=== PATIENT | male | born 1945 | race Caucasian/White ===

== ENCOUNTER 2017-01-30 09:13 | Emergency (ER) | payer MEDICARE, BC ==
[2017-01-30 09:52] VITALS: BP 117/61
[2017-01-30] MEDS ORDERED: Albuterol/Ipratropium NEB.SOL* Albuterol 2.5 MG/Ipratropium 0.5 MG 3 ML INH ONE (10:02)
--- NOTE | 2017-01-30 10:14 | UC ---
Respiratory Complaint HPI - HPI Summary HPI Summary: ST, nasal bandar, cough, wheezing, chest tightness starting 5 days ago. it is much worse at night and when he lies down. Denies fever or vomiting. No hx of COPD or asthma. - History of Current Complaint Chief Complaint: UCRespiratory Stated Complaint: CONGESTION Time Seen by Provider: 01/30/17 09:55 Hx Obtained From: Patient Onset/Duration: Gradual Onset, Lasting Days Timing: Constant Severity Initially: Mild Severity Currently: Moderate Character: Cough: Nonproductive Aggravating Factors: Deep Breaths, Recumbent Position Alleviating Factors: Upright Position - Allergies/Home Medications Allergies/Adverse Reactions: Allergies Allergy/AdvReac Type Severity Reaction Status Date / Time No Known Allergies Allergy Verified 01/30/17 09:42 Home Medications: Home Medications Atorvastatin* [Lipitor 20 MG*] 1 tab PO SEE INSTRUCTIONS 01/30/17 [History Confirmed 01/30/17] PMH/Surg Hx/FS Hx/Imm Hx Previously Healthy: Yes - Surgical History Surgical History: Yes Surgery Procedure, Year, and Place: BILATERAL KNEE REPLACEMENTS 10 YEARS AGO - Family History Known Family History: Positive: Hypertension - Social History Alcohol Use: Daily Substance Use Type: None Smoking Status (MU): Never Smoked Tobacco Review of Systems Constitutional: Negative Skin: Negative Eyes: Negative ENT: Sore Throat, Nasal Discharge Respiratory: Shortness Of Breath, Cough Cardiovascular: Negative Gastrointestinal: Negative Genitourinary: Negative Motor: Negative Neurovascular: Negative Musculoskeletal: Negative Neurological: Negative Psychological: Negative All Other Systems Reviewed And Are Negative: Yes Physical Exam Triage Information Reviewed: Yes Appearance: Well-Appearing, No Pain Distress, Well-Nourished Vital Signs: Initial Vital Signs Temp 99.5 F 01/30/17 09:46 Pulse 82 01/30/17 09:46 Resp 16 01/30/17 09:46 BP 117/61 01/30/17 09:46 Pulse Ox 95 01/30/17 09:46 Vital Signs Reviewed: Yes Eye Exam: Normal Eyes: Positive: Conjunctiva Clear ENT: Positive: Hearing grossly normal, Pharynx normal, Nasal congestion, TMs normal. Negative: Tonsillar swelling, Tonsillar exudate Dental Exam: Normal Neck exam: Normal Neck: Positive: Supple, Nontender, No Lymphadenopathy Respiratory: Positive: Respiratory distress - mild, unable to get through entire sentences without taking another breath., Accessory muscle use, Rhonchi, Wheezing Cardiovascular: Positive: RRR, Murmur:Sys:Grade _?_/ - III, sees Dr. Hendrickson for this Musculoskeletal Exam: Normal Neurological Exam: Normal Neurological: Positive: Alert Psychological Exam: Normal Skin Exam: Normal UC Diagnostic Evaluation - Laboratory O2 Sat by Pulse Oximetry: 95 Re-Evaluation - Re-Evaluation First Eval Re-Evaluation Time: 10:40 Change: Improved - slightly increased air movement, still has very wet, ronchorous noises with insp and exp. Pt does not feel marked improvement and not having productive cough. Respiratory Course/Dx - Differential Dx/Diagnosis Provider Diagnoses: RLL pneumonia. bronchospasm Discharge - Discharge Plan Condition: Stable Disposition: HOME Prescriptions: Albuterol HFA INHALER* [Ventolin HFA Inhaler*] 1 - 2 puff INH Q4H PRN #1 mdi PRN Reason: wheeze, cough Amoxicillin/Clavulanate TAB* [Augmentin TAB 875*] 875 mg PO BID #14 tab predniSONE TAB* [Deltasone TAB*] 50 mg PO DAILY #5 tab Patient Education Materials: Pneumonia (ED), Bronchospasm (ED) Referrals: Sebastian Dai MD [Primary Care Provider] - 3 Days Additional Instructions: Please follow up closely with your primary care provider to make sure you are improving and to arrange for longer-term follow up care. If you have severe trouble breathing or sudden worsening, please go to the emergency department.
--- NOTE | 2017-01-30 11:12 | RAD ---
INDICATION: Cough and shortness of breath. Wheezing. Chest pain. COMPARISON: April 26, [address] TECHNIQUE: Dual energy PA and routine lateral views of the chest were obtained. REPORT: Airspace consolidation at the RIGHT lung base involving the RIGHT middle lobe and basilar segments of the RIGHT lower lobe. Small RIGHT pleural effusion. Clear LEFT lung and pleural space. Negative for cardiomegaly. Unremarkable central pulmonary vasculature. IMPRESSION: RIGHT basilar pneumonia. Associated small effusion. Radiographic follow-up after therapy warranted to assess for resolution and exclude an obscured lesion.
== END 2017-01-30 11:32 | disposition home or self-care (01) ==
LOC: UCEAST 09:13
DX: J18.9 Pneumonia, unspecified organism (principal); J98.01 Acute bronchospasm; Z96.653 Presence of artificial knee joint, bilateral
CPT/HCPCS: 71020; 90471; 99212; A9270-GY; G0463

== ENCOUNTER 2017-02-12 07:03 | Emergency (ER) | payer MEDICARE, BC ==
[2017-02-12 07:14] VITALS: BP 128/77
--- NOTE | 2017-02-12 07:54 | UC ---
Upper Extremity HPI - HPI Summary HPI Summary: Pt presents to ED through amb triage. Pt with h/o aortic stenosis, HTN, hyperlipidemia, and drinks 2 drinks per day. Pt states 5 days developed pain in his left hand, wrist. Pt states progressively has had increased pain, paresthesia to hand and starting yesterday radiation to left elbow. Pt also has noted over the last 2 days increased swelling in hand and forearm. Pt states feels fatigue and hot but no documented fever. No cp, sob, abd pain. No TAI, vision changes. Pt states last night developed difficulty moving arm second to swelling and pain. No analgesia taken. Pt is not immunocompromised. No h/o DVT. No anticoagulation. Pt h/o arthritis or gout. No trauma. RHD. Pt states had a remote h/o of "fluid build up from my liver." Pt was on diuretics, not currently Pt states was recently treated for PNA 2 weeks ago - pt given MDI, Abx, and Prednisone x 5 days. States feeling better. Pt's medications reviewed at this visit. - History of Current Complaint Chief Complaint: UCUpperExtremity Stated Complaint: ARM PAIN Time Seen by Provider: 02/12/17 07:22 Hx Obtained From: Patient, Family/Engineering Operations Leader Onset/Duration: Gradual Onset Severity Initially: Mild Severity Currently: Moderate Location Of Pain: Is Discrete @ - LUE Aggravating Factor(s): Movement, Lifting Alleviating Factor(s): Nothing, Other: - applied heat, Motrin without relief Associated Signs And Symptoms: Positive: Swelling, Redness, Numbness/Tingling - Allergies/Home Medications Allergies/Adverse Reactions: Allergies Allergy/AdvReac Type Severity Reaction Status Date / Time No Known Allergies Allergy Verified 02/12/17 07:07 Home Medications: Home Medications Aspirin 81 mg PO DAILY 02/12/17 [History Confirmed 02/12/17] Cyanocobalamin TAB* [Vitamin B12 TAB*] 500 mcg PO DAILY 02/12/17 [History Confirmed 02/12/17] Diphenhydramine-Acetaminophen [Acetaminophen/Diphenhydra 25-500 mg] 1 tab PO DAILY 02/12/17 [History Confirmed 02/12/17] PMH/Surg Hx/FS Hx/Imm Hx Previously Healthy: No Endocrine History: Dyslipidemia Cardiovascular History: Hypertension - Surgical History Surgical History: Yes Surgery Procedure, Year, and Place: BILATERAL KNEE REPLACEMENTS 10 YEARS AGO - Family History Known Family History: Positive: Hypertension - Social History Occupation: Retired Lives: With Family Alcohol Use: Daily Alcohol Amount: 2 glasses wine daily Substance Use Type: None Smoking Status (MU): Never Smoked Tobacco Review of Systems Constitutional: Fatigue, Other - warmth Skin: Other - left upper ext pain Eyes: Negative ENT: Negative Respiratory: Negative Cardiovascular: Negative Gastrointestinal: Negative Genitourinary: Negative Motor: Decreased ROM Neurovascular: Decreased Sensation Musculoskeletal: Decreased ROM Neurological: Negative Psychological: Negative All Other Systems Reviewed And Are Negative: Yes Physical Exam Triage Information Reviewed: Yes Appearance: Well-Appearing, Well-Nourished, Pain Distress - with movement Vital Signs: Initial Vital Signs Temp 99.1 F 02/12/17 07:10 Pulse 71 02/12/17 07:10 Resp 16 02/12/17 07:10 BP 128/77 02/12/17 07:10 Pulse Ox 95 02/12/17 07:10 Vital Signs Reviewed: Yes Eyes: Negative: Discharge ENT: Positive: Hearing grossly normal Neck exam: Normal Neck: Positive: Supple, Nontender, No Lymphadenopathy Respiratory Exam: Normal Respiratory: Positive: Chest non-tender, Lungs clear, Normal breath sounds, No respiratory distress Cardiovascular: Positive: RRR, No Murmur, Pulses Normal, Other: - 2+ radial, ulnar CBT < 2 sec all fingers Abdominal Exam: Normal Abdomen Description: Positive: Nontender, No Organomegaly, Soft Bowel Sounds: Positive: Present Musculoskeletal Exam: Other - + abduction, extension left arm + flex/ext elbow with pain referred to wrist + pronate/supinate with discomfort in left wrist Pt with limited flex/ext wrist second to pain and edema + TTP distal, medial wrist with direct palpation. Pt with difficulty movement of fingers second to profound edema - diffuse palm, fingers Neurological: Positive: Alert Psychological Exam: Normal Skin: Positive: Other - PT with 3x3 cm erythema and warmth dorsum left hand, medial wrist + TTP No crepitus, no open wounds Pt with diffuse edema palm and fingers Pt with slight erythema linear line extending prox to elbow - Additional Comments Pt with wedding band on left ring finger. Band with a pre-existing break. Using forceps opened ring at existing break and placed in specimen cup - given to patient Upper Extremity Course/Dx - Course Course Of Treatment: Pt with diffuse edema of left hand, wrist and forearm with area of erythema, tenderness medial, dorsal, wrist. Differential includes gout , joint infection, cellulitis, and lower suspicion for DVT. Ring removed and given to pt. Recommend pt to ED for further eval and treatment - likely include labs, imaging, possible abx. Pt and spouse comfortable and in agreement with plan. by POV - Differential Dx/Diagnosis Provider Diagnoses: left arm/hand edema, hand erythema Discharge - Discharge Plan Condition: Stable Disposition: [facility] Referrals: Sebastian Dai MD [Primary Care Provider] - Additional Instructions: The doctor that evaluated you today recommends you go to the emergency department for futher evaluation of the swelling in your hand. You need to be further evaluated for a joint infections, gout, or possibly a blood clot. At the emergency department you will likely have blood tests and some imaging. Your ring was removed in the urgent care center and given back to you in a medication cup Go directly to the emergency department.
== END 2017-02-12 07:57 | disposition short-term general hospital (02) ==
LOC: UCEAST 07:03
DX: R60.0 Localized edema (principal); L53.9 Erythematous condition, unspecified; E78.5 Hyperlipidemia, unspecified; I10 Essential (primary) hypertension; Z96.653 Presence of artificial knee joint, bilateral
CPT/HCPCS: 99212; G0463

== ENCOUNTER 2017-02-12 08:13 | Emergency (ER) | payer MEDICARE, BC ==
--- NOTE | 2017-02-12 09:27 | RAD ---
INDICATION: Edema left hand. TECHNIQUE: 4 views of the left hand were obtained. FINDINGS: There is diffuse soft tissue swelling. The bones appear osteopenic. No fracture or significant focal osseous abnormality is seen. There is mild to moderate osteoarthritic change in the metacarpophalangeal proximal and distal interphalangeal joints and moderate to severe osteoarthritic change in the first carpal metacarpal joint. IMPRESSION: DIFFUSE SOFT TISSUE SWELLING.
[2017-02-12 09:45] LABS: Hematocrit 44 % (42-52); Hemoglobin 14.4 g/dl (14.0-18.0); Mean Corpuscular HGB Conc 33 g/dl (31-36); Mean Corpuscular Hemoglobin 30 pg (27-31); Mean Corpuscular Volume 90 fL (80-94); Mean Platelet Volume 10 um3 (7.4-10.4); Red Blood Count 4.84 10^6/ul (4.0-5.4); Red Cell Distribution Width 16 % (10.5-15)
[2017-02-12 10:01] LABS: Albumin 3.6 g/dL (3.2-5.2); BUN/Creatinine Ratio 26.2 (8-20); Calcium 8.8 mg/dL (8.6-10.3); EGFR African American 156.2 (>60); EGFR Non-African American 121.4 (>60); Globulin 2.9 g/dL (2-4); Total Bilirubin 2.3 mg/dL (0.2-1.0); Total Protein 6.5 g/dL (6.4-8.9)
--- NOTE | 2017-02-12 10:01 | RAD ---
INDICATION: Tenderness along the veins of the forearm. COMPARISON: There are no prior studies available for comparison. TECHNIQUE: Multiple real-time, color flow and Doppler tracings of the left upper extremity were obtained. FINDINGS: The axillary, brachial, basilic and cephalic veins all demonstrate normal compressibility, augmentation with compression and phasic response with respiration. There was increased pulsatile flow. The radial and ulnar arteries demonstrate normal compressibility. The subclavian and internal jugular veins also demonstrate normal color flow imaging and phasic response with respiration. IMPRESSION: NO EVIDENCE FOR DEEP VENOUS THROMBOSIS.
--- NOTE | 2017-02-12 10:14 | ED ---
Upper Extremity Pain - HPI Summary HPI Summary: 71M presents with left wrist swelling and redness for 5 days. The redness was just noticed a today at urgent care. He denies any injury to the area. He denies any scratches to area. He is DM2 controlled by diet. He has ecchmoysis to the area which is a recurrent issue. He states the pain increased last night and he is extremely tender to ROM the joint. He denies any fever. He denies any spreading redness to the joint previously. He denies any history of gout. He denies any smoking history. He is right handed. He did complete a course of antibiotic two weeks ago for pneumonia. - History of Current Complaint Chief Complaint: EDExtremityUpper Stated Complaint: HAND AND ARM SWELLING COMMING FROM [facility] Time Seen by Provider: 02/12/17 08:48 - Allergies/Home Medications Allergies/Adverse Reactions: Allergies Allergy/AdvReac Type Severity Reaction Status Date / Time No Known Allergies Allergy Verified 02/12/17 07:07 PMH/Surg Hx/FS Hx/Imm Hx Endocrine/Hematology History: Reports: Hx Diabetes - NO MEDS Denies: Hx Thyroid Disease Cardiovascular History: Reports: Hx Hypertension Respiratory History: Denies: Hx Asthma, Hx Chronic Obstructive Pulmonary Disease (COPD) GI History: Denies: Hx Ulcer - Surgical History Surgery Procedure, Year, and Place: BILATERAL KNEE REPLACEMENTS 10 YEARS AGO Infectious Disease History: No Infectious Disease History: Denies: Hx Hepatitis, Hx Human Immunodeficiency Virus (HIV), History Other Infectious Disease, Traveled Outside the [place] in Last 30 Days - Family History Known Family History: Positive: Hypertension - Social History Alcohol Use: Daily Alcohol Amount: 2 glasses wine daily Substance Use Type: Reports: None Smoking Status (MU): Never Smoked Tobacco Review of Systems Negative: Fever Negative: Chest Pain Negative: Shortness Of Breath Positive: Edema - left wrist Positive: Other - redeness of left wrist All Other Systems Reviewed And Are Negative: Yes Physical Exam Triage Information Reviewed: Yes Vital Signs On Initial Exam: Initial Vitals Temp Pulse Resp BP Pulse Ox 97.8 F 74 18 132/65 98 02/12/17 08:17 02/12/17 08:17 02/12/17 08:17 02/12/17 08:17 02/12/17 08:17 Vital Signs Reviewed: Yes Appearance: Positive: Well-Appearing Skin: Positive: Other - 4cm by 4cm with area of erythema that streaks up arm on ulnar ascept of arm Head/Face: Positive: Normal Head/Face Inspection Eyes: Positive: Normal, Conjunctiva Clear Respiratory/Lung Sounds: Positive: Clear to Auscultation, Breath Sounds Present Cardiovascular: Positive: Normal, RRR Musculoskeletal: Positive: Limited @ - left wrist with severe pain with ROM, Other - good pulses, capillary refill<2 secs, able to move fingers - Sofiya Coma Scale Coma Scale Total: 15 Diagnostics - Vital Signs Vital Signs Temp Pulse Resp BP Pulse Ox 02/12/17 09:00 62 120/71 97 02/12/17 08:31 66 97 02/12/17 08:30 120/65 02/12/17 08:17 97.8 F 72 17 132/65 99 - Laboratory Lab Results: Lab Results 02/12/17 02/12/17 02/12/17 Range/Units 09:31 09:31 09:31 WBC 9.0 (3.5-10.8) 10^3/ul RBC 4.84 (4.0-5.4) 10^6/ul Hgb 14.4 (14.0-18.0) g/dl Hct 44 (42-52) % MCV 90 (80-94) fL MCH 30 (27-31) pg MCHC 33 (31-36) g/dl RDW 16 H (10.5-15) % Plt Count 136 L (150-450) 10^3/ul MPV 10 (7.4-10.4) um3 Neut % (Auto) 83.7 H (38-83) % Lymph % (Auto) 5.7 L (25-47) % [place] % (Auto) 9.9 H (1-9) % Eos % (Auto) 0.2 (0-6) % Baso % (Auto) 0.5 (0-2) % Absolute Neuts (auto) 7.6 (1.5-7.7) 10^3/ul Absolute Lymphs (auto) 0.5 L (1.0-4.8) 10^3/ul Absolute Monos (auto) 0.9 H (0-0.8) 10^3/ul Absolute Eos (auto) 0 (0-0.6) 10^3/ul Absolute Basos (auto) 0 (0-0.2) 10^3/ul Absolute Nucleated RBC 0 10^3/ul Nucleated RBC % 0 ESR Pending Sodium 135 (133-145) mmol/L Potassium 4.0 (3.5-5.0) mmol/L Chloride 103 (101-111) mmol/L Carbon Dioxide 27 (22-32) mmol/L Anion Gap 5 (2-11) mmol/L BUN 17 (6-24) mg/dL Creatinine 0.65 L (0.67-1.17) mg/dL Est GFR ( Amer) 156.2 (>60) Est GFR (Non-Af Amer) 121.4 (>60) BUN/Creatinine Ratio 26.2 H (8-20) Glucose 120 H (70-100) mg/dL Lactic Acid 0.9 (0.5-2.0) mmol/L Calcium 8.8 (8.6-10.3) mg/dL Total Bilirubin 2.30 H (0.2-1.0) mg/dL AST 15 (13-39) U/L ALT 19 (7-52) U/L Alkaline Phosphatase 105 H (34-104) U/L C-React Prot High Sens 31.18 mg/L Total Protein 6.5 (6.4-8.9) g/dL Albumin 3.6 (3.2-5.2) g/dL Globulin 2.9 (2-4) g/dL Albumin/Globulin Ratio 1.2 (1-3) Result Diagrams: 02/12/17 09:31 02/12/17 09:31 Lab Statement: Any lab studies that have been ordered have been reviewed, and results considered in the medical decision making process. - Ultrasound No standard instances Ultrasound Interpretation: Positive (See Comments) - IMPRESSION: THERE IS A SMALL COMPLEX FLUID COLLECTION PRESENT IN THE SOFT TISSUES ALONG THE DORSAL ASPECT OF THE WRIST POSSIBLY REPRESENTING A SMALL ABSCESS Ultrasound Interpretation Completed By: Radiologist Course/Dx - Course Course Of Treatment: 71M w/ PMH of DM presents with left wrist swelling and redness for 5 days. The redness was just noticed a today at urgent care. He denies any injury to the area. He states the pain increased last night and he is extremely tender to ROM the joint. He denies any fever. on exam he is very tender with active and passive ROM of left wrist. moderate amount of edema present of hand and wrist. area of redness over dorsum of hand near ulnar area that spreads up to left elbow as a single streak. labs wbc9, crp 31, ESR 21, uric acid low. xray shows diffuse soft tissue swelling. venous u/s shows no DVT. u/s soft tissue shows. dr soni seen in ED and will tap joint. dr soni successfully tapped joint and sent for culture. gave dose of ancef. spoke with dr soni again and will send home on augmentin, gave brace, and follow up with ortho. patient understands and agrees with plan - Diagnoses Differential Diagnosis/HQI/PQRI: Positive: Arthritis - septic, Bursitis, Other - DVT, gout, cellulitis Provider Diagnoses: Pain and swelling of left wrist, Cellulitis - Physician Notifications Discussed Care of Patient With: dr soni Time Discussed With Above Provider: 10:33 - will see in ED Discharge - Discharge Plan Condition: Good Disposition: HOME Prescriptions: Amoxicillin/Clavulanate TAB* [Augmentin TAB 875*] 875 mg PO BID #20 tab oxyCODONE/Acetamin 5/325 MG* [Percocet 5/325 TAB*] 1 tab PO Q6H PRN #20 tab MDD 4 PRN Reason: Pain Patient Education Materials: Cellulitis (ED) Referrals: Sebastian Dai MD [Primary Care Provider] - Jackie Soni MD [Medical Doctor] - Additional Instructions: Take Augmentin twice a day starting tonight Take ibuprofen 600mg three times a day, use narcotic every 6 hours for break through pain Narcotic can make constipated Ice, elevate, keep in brace as much as possible Follow up with ortho on Tuesday, call office tuesday for time Return to ED if develop fever, redness continues to spread or any new or worsening symptoms
[2017-02-12] MEDS ORDERED: ceFAZolin VIAL(*) 1 GM in NS 0.9% 50 ML* 50 ML IVPB ONE (10:21)
[2017-02-12 10:48] LABS: Erythrocyte Sed Rate 21 mm/Hr (0-40)
[2017-02-12 11:13] LABS: Uric Acid 4.3 mg/dL (4.4-7.6)
--- NOTE | 2017-02-12 11:57 | RAD ---
INDICATION: Swelling, assess for fluid collection. COMPARISON: Correlation is made with a prior x-ray study of the left hand from February 12, 2017. TECHNIQUE: Multiple real-time images of the left wrist were obtained. FINDINGS: There is soft tissue swelling along the dorsal aspect of the wrist. At the level of the carpal bones there is a small fluid collection measuring 1.1 x 1.2 x 0.7 cm in size. This is slightly complex with low-level internal echoes and is located approximately 0.4 cm deep to the skin surface. IMPRESSION: THERE IS A SMALL COMPLEX FLUID COLLECTION PRESENT IN THE SOFT TISSUES ALONG THE DORSAL ASPECT OF THE WRIST POSSIBLY REPRESENTING A SMALL ABSCESS.
[2017-02-12] MEDS ORDERED: Ketorolac INJ* 30 MG/ML 1 ML VIAL IV PUSH ONE (12:22)
[2017-02-12 12:23] VITALS: BP 113/68
[2017-02-12] MEDS ORDERED: oxyCODONE/Acetamin 5/325 MG* TAB PO ONE (12:23)
--- NOTE | 2017-02-12 16:40 | HP ---
CC: Primary Care Physician HISTORY AND PHYSICAL: DATE OF ADMISSION: 02/12/17 ATTENDING PHYSICIAN: Jackie Orantes MD CHIEF COMPLAINT: Left wrist pain. HISTORY OF PRESENT ILLNESS: Briefly, Dg Krishnamurthy is an 71-year-old right-hand dominant male, who presents with left swollen wrist, swelling and redness for 5 to 7 days. He said that, he went to urgent care today and they noticed a lot of redness and swelling about the wrist area. He denies any trauma. He did have a recent history of pneumonia for which he was treated with antibiotics. He does diabetes type 2, but it is diet controlled, he is not on any blood thinners other than baby aspirin. He says the pain has increased a lot. He is having pain with range of motion. He denies any fevers, or chills. No history of gout. PAST MEDICAL HISTORY: 1. Hypertension. 2. Hyperlipidemia. 3. Diabetes, which is diet controlled. 4. Recent pneumonia for which he was received 2 weeks of antibiotics. PAST SURGICAL HISTORY: Bilateral knee replacement about 10 years ago. MEDICATIONS: He takes: 1. Atorvastatin. 2. Baby aspirin. ALLERGIES: None. FAMILY HISTORY: Negative. 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 He lives with his . His has recently been diagnosed with cancer and she is starting treatment of chemotherapy for this soon. REVIEW OF SYSTEMS: Significant for recent pneumonia as well as the above complaint. Otherwise, remainder of systems is negative. PHYSICAL EXAMINATION GENERAL: He is in no acute distress. He is well developed and well nourished. He is alert and oriented x3. He has pleasant mood and normal affect. VITAL SIGNS: Temperature 97.8, pulse 63, O2 is 96% on room air, blood pressure is 120/71. LUNGS: Chest is clear to auscultation. HEART: Regular rate and rhythm. ABDOMEN: Soft and nondistended. EXTREMITIES: His left wrist has lot of swelling and erythema particularly ulnarly based. He has pain with passive range of motion of the wrist. He is sensate to light touch about the first dorsal webspace, volar aspect of index and long finger, and ulnar aspect of small finger. He has 2+ radial pulse. He has pain volarly as well. He has streaking that goes up to the dorsal aspect of his forearm. There are no open wounds. There is no evidence of drainage. The skin is otherwise is intact. He is able to flex and extend his digits. He is nontender about the elbow or shoulder. LABORATORY DATA: Labs, white blood cell count of 9.0, hematocrit is 44, platelet count is 136. ESR 21. Sodium is 135, potassium 4.0, chloride 103, carbon dioxide 27, BUN is 17, creatinine 0.65, and glucose of 120. C-reactive protein is 31. X- rays were reviewed that demonstrated significant osteoarthritis of the left wrist and small soft tissue swelling, but no fracture or dislocation and no foreign body. ASSESSMENT AND PLAN: He has soft tissue swelling with a lot of pain as well as pain with passive motion of the wrist. It is possible that this is more superficial. I asked for an ultrasound to be ordered. I am also going to aspirate his joint, there is a small area that has no erythema, radially based. We did review the risks and benefits of aspiration versus not. If his results are negative, we will discharge him with oral antibiotics. The left wrist was prepped and draped in usual sterile fashion, a 22 gauge needle was used to aspirate 2 drops from the joint. It did appear to have some yellowish tinge to it, but it did not appear to be cloudy. The sample was then taken and handed down to lab stat for Gram stain and culture. We will also get an ultrasound to see if the swelling of soft tissue is rather in the joint and we will continue to follow. Otherwise, I would recommend a volar splint, ice, antiinflammatory with elevation. We will follow the results and if we need to we will plan for surgical debridement later today. He will be n.p.o. [id number]/[facility] #: [id number] [facility] PARTNERSCecilia
== END 2017-02-12 12:48 | disposition home or self-care (01) ==
LOC: ED 08:13
DX: L03.114 Cellulitis of left upper limb (principal); R60.9 Edema, unspecified
CPT/HCPCS: 36415; 80053; 83605; 84550; 85025; 85652; 86141; 87070; 87205; 87640; 87641; 96374; 99283; A9270-GY; J0690; J1885